=== PATIENT | male | born 1995 | race Caucasian/White ===

== ENCOUNTER 2022-11-23 16:25 | Emergency (ER) | payer OTHER, SELFPAY ==
[2022-11-23 16:31] VITALS: BP 144/80; PULSE 64; RESP 18; TEMP 36.6; O2SAT 100; BMI 25.5
--- NOTE | 2022-11-23 17:10 | CRLHL7_ITS ---
For Patients: As a result of the Century Cures Act, medical imaging exams and procedure reports are released immediately into your electronic medical record. You may view this report before your referring provider. If you have questions, please contact your health care provider. INDICATION: Fall. Dizziness. Headaches. TECHNIQUE: CT of the head without contrast. Coronal and sagittal reformats are included. COMPARISON: None. FINDINGS: No CT evidence of acute cortical infarct. No loss of leavitt white matter differentiation. No hyperdense vessels to suggest intracranial thrombus. No acute intracranial hemorrhage. No mass effect or midline shift. No hydrocephalus or extra-axial collections. White matter is within normal limits for age. No acute osseous abnormalities. Mastoid air cells and paranasal sinuses are clear. Normal soft tissues. IMPRESSION: IMPRESSION:1. No CT evidence of acute cortical infarct. No acute intracranial hemorrhage. No other acute intracranial findings. Please note that all CT scans at this facility use dose modulation, iterative reconstruction, and/or weight-based dosing when appropriate to reduce radiation dose to as low as reasonably achievable. Dictated by Jorge Luis Patel MD @ 11/23/2022 5:52:16 PM (Electronically Signed)
--- NOTE | 2022-11-23 17:11 | ED_ITS ---
HPI - Dizziness General Chief Complaint: Dizziness/Vertigo Stated Complaint: Fell earlier, dizzy Time Seen by Provider: 11/23/22 16:55 History of Present Illness HPI Narrative: This 27-year-old male comes in reporting a near syncopal episode that occurred a couple hours prior to arrival. He states that he was taking his garbage out and he began to feel lightheaded with some sense of movement of his surroundings. He was not able to correct these symptoms and did fall down without injury. He recovered rather quickly after this. He does report a headache currently and has been having some headaches over the past 3 weeks or so. He has had some other episodes of lightheadedness similar to this in the past. He is taking Lexapro and has been on a small dose of penicillin for the past 8 months because of recurrent cellulitis. He is not on any other medicines and does not report any street drug or alcohol use. He does have history of anxiety for which she is taking Lexapro. He does appear a bit anxious here and seems to be breathing a little faster than normal. Related Data Home Medications Medication Instructions Recorded Confirmed escitalopram oxalate 10 mg tablet 10 mg PO DAILY 11/23/22 11/23/22 (Lexapro) penicillin V potassium 250 mg 250 mg PO BID 11/23/22 11/23/22 tablet Allergies Allergy/AdvReac Type Severity Reaction Status Date / Time Sulfa (Sulfonamide Allergy Mild Rash Verified 11/23/22 16:40 Antibiotics) Review of Systems Status of ROS: Reports: 10 or more systems reviewed and unremarkable except as noted in History and below Narrative: Constitutional: No fevers, no weight gain or loss. Eyes: No discharge. No vision changes. HENT: No congestion, no sore throat, no ear pain. Cardiovascular: No chest pain, no palpitations. Respiratory: No shortness of breath, no wheezes, no cough. Gastrointestinal: No abdominal pain, no vomiting, no diarrhea. Genitourinary: No dysuria, no hematuria. Musculoskeletal: Normal range of motion. Skin: No rashes, no pruritis. Neurological: No weakness, sensory change, speech change. Lightheadedness episodes as described above. Endo/Heme/Allergies: No bruising or bleeding. No polydipsia. Pysch: no suicidality, no anxiety, no insomnia. All other systems reviewed and are negative. Exam Narrative: Exam Narrative: Constitutional: Well-developed, well-nourished, no acute distress. HEENT: Normocephalic, atraumatic. Neck: Normal range of motion. Nontender. Supple. Heart: Regular. No murmurs. Normal rate. Intact distal pulses. Lungs: Clear to auscultation. No chest discomfort. No wheezes, rhonchi, or rales. Abdomen: Normal bowel sounds. Nontender. No rebound tenderness. Genitalia: Deferred. Back: No midline tenderness. Normal range of motion. Extremities: Normal range of motion. No injury. Skin: Intact. No rash. Warm. No erythema or pallor. Neurologic: No altered sensation. No weakness. Alert and oriented. Psychiatric: No suicidality. No anxiety or depression. No insomnia. Nursing notes and vitals signs are reviewed. Const: Vital Signs, click to edit/add: Vital Signs - 24 hr 11/23/22 16:31 Temperature 98 F Pulse Rate [Pulse Oximeter] 64 Respiratory Rate 18 Blood Pressure [Ri t Upper Arm] 144/80 H Pulse Oximetry 100 Course Vital Signs Vital signs: Initial Vital Signs Temperature 98 F 11/23/22 16:31 Temperature Source Temporal Artery Scan 11/23/22 16:31 Pulse Rate 64 11/23/22 16:31 Pulse Rhythm 11/23/22 16:31 Pulse Strength 3+ Normal 11/23/22 16:31 Respiratory Rate 18 11/23/22 16:31 Blood Pressure 144/80 H 11/23/22 16:31 Blood Pressure Mean 101 11/23/22 16:31 Blood Pressure Position Sitting 11/23/22 16:31 Pulse Oximetry 100 11/23/22 16:31 Vital Signs Temperature 98 F 11/23/22 16:31 Pulse Rate 64 11/23/22 16:31 Respiratory Rate 18 11/23/22 16:31 Blood Pressure 144/80 H 11/23/22 16:31 Pulse Oximetry 100 11/23/22 16:31 Temperature 98 F 11/23/22 16:31 Pulse Rate 64 11/23/22 16:31 Respiratory Rate 18 11/23/22 16:31 Blood Pressure 144/80 H 11/23/22 16:31 Pulse Oximetry 100 11/23/22 16:31 MDM - Dizziness MDM Narrative Medical decision making narrative: This patient comes in for evaluation of a episode of lightheadedness with near syncope. He has had a few of these occasions in the past. He feels back to normal except for a headache. He is not on any new medications. 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 Currently he feels back to normal. He has been on Lexapro for many years at 10 mg daily. Since having his son in the past year he feels that he has much less anxiety and depression symptoms and wonders if that might be good to come off of this medicine. A CT scan of the head is acquired today and shows no acute findings. At the time of discharge the patient appears safe for outpatient management. The treatment plan is reviewed along with written and verbal return precautions. Reasons to return and the importance of close followup were also reviewed. Imaging Data CT scan - head: Radiologist's impression: No CT evidence of acute cortical infarct. No acute intracranial hemorrhage. No other acute intracranial findings. Discharge Plan Discharge Clinical Impression: Episodic lightheadedness Patient Disposition: Home, Self-Care Condition: Improved Additional Instructions: Continue current plans. Follow up with MD as needed. Return if symptoms are recurrent or worsening. Prescriptions: No Action escitalopram oxalate [Lexapro] 10 mg tablet 10 mg PO DAILY penicillin V potassium 250 mg tablet 250 mg PO BID Follow Up/Referrals: Provider,Not a Local [Primary Care Provider] - Stand Alone Forms: [employer] Info Instructions
[2022-11-23 18:05] VITALS: BP 124/78; PULSE 63; RESP 18; TEMP 36.6; O2SAT 100
[2022-11-23 18:08] VITALS: BP 124/78; PULSE 63; RESP 18; TEMP 36.6
== END 2022-11-23 18:08 | disposition home or self-care (01) ==
PROVIDERS: Emergency Provider Emergency Medicine Emergency Medical Services
DX: R42 Dizziness and giddiness (principal)
CPT/HCPCS: 70450; 99283; 99284

== ENCOUNTER 2023-07-05 15:37 | Emergency (ER) | payer OTHER, SELFPAY ==
[2023-07-05 15:48] VITALS: BP 147/91; PULSE 63; RESP 18; TEMP 36.6; O2SAT 98; BMI 25.3
--- NOTE | 2023-07-05 16:10 | ED_ITS ---
HPI - General Adult General Time Seen by Provider: 16:10 Date Seen: 07/05/23 Chief complaint: Chest Pain Stated complaint: Chest pain, heart fluttering, new medication Time Seen by Provider: 07/05/23 15:58 Source: patient Mode of arrival: ambulatory Limitations: no limitations History of Present Illness HPI narrative: Patient is a pleasant 28 year white male who works in [employer], lives in [place]. He has been working with [facility] regarding migraines and vestibular dysfunction. Recently started on mirtazapine, and since then for last few days he has had palpitations feels like his heart is beating hard. She had no real chest pain no marked recurrent lightheadedness or dizziness, but does feel the intermittent palpitations. He was told by his [facility] clinicians that he should stop the medications talk to his local doctor. Local doctor asked him to come to the emergency department. Patient has had blood work done last 3 weeks that was all within normal limits, he denies fever, chills, COVID symptoms. He has had no history of heart disease, no immediate family history of heart disease other his grandmother had a congenital issue Related Data Home Medications Medication Instructions Recorded Confirmed escitalopram oxalate 10 mg tablet 10 mg PO DAILY 11/23/22 11/23/22 (Lexapro) penicillin V potassium 250 mg 250 mg PO BID 11/23/22 11/23/22 tablet mirtazapine 15 mg tablet 15 mg PO QPM 07/05/23 07/05/23 verapamil 120 mg tablet,extended 120 mg PO QPM migraine 07/05/23 07/05/23 release Allergies Allergy/AdvReac Type Severity Reaction Status Date / Time Sulfa (Sulfonamide Allergy Mild Rash Verified 11/23/22 16:40 Antibiotics) Review of Systems Status of ROS: Reports: 6 or more systems reviewed and unremarkable except as noted in History and below PFSH PFS Social History Smoking Status: Never smoker How often do you have a drink containing alcohol: never AUDIT-C Alcohol total score: 0 Non-prescribed substance use: denies use Exam Narrative: Exam Narrative: Objective: Vital signs show slightly elevated systolic pressure, O2 sat 98% on room air Alert orient x3 no distress no cyanosis HEENT unremarkable Neck is supple Chest clear Heart rhythm regular heart murmur Extremities he is moving all 4s good peripheral perfusion noted Const: Vital Signs, click to edit/add: Vital Signs - 24 hr 07/05/23 15:48 07/05/23 16:32 07/05/23 16:33 Temperature 97.9 F Pulse Rate 53 L 51 L Pulse Rate [Right Pulse Oximeter] 63 Respiratory Rate 18 Blood Pressure 121/72 Blood Pressure [Ri ght Upper Arm] 147/91 H Pulse Oximetry 98 98 98 Oxygen Delivery Me thod Room Air 07/05/23 17:00 07/05/23 17:02 Temperature Pulse Rate 48 L 48 L Pulse Rate [Right Pulse Oximeter] Respiratory Rate Blood Pressure 134/77 Blood Pressure [Ri ght Upper Arm] Pulse Oximetry 97 98 Oxygen Delivery Me thod Course Vital Signs Vital signs: Initial Vital Signs Temperature 97.9 F 07/05/23 15:48 Temperature Source Temporal Artery Scan 07/05/23 15:48 Pulse Rate 63 07/05/23 15:48 Respiratory Rate 18 07/05/23 15:48 Blood Pressure 147/91 H 07/05/23 15:48 Blood Pressure Mean 109 H 07/05/23 15:48 Blood Pressure Position Sitting 07/05/23 15:48 Pulse Oximetry 98 07/05/23 15:48 Oxygen Delivery Method Room Air 07/05/23 15:48 Vital Signs Temperature 97.9 F 07/05/23 15:48 Pulse Rate 63 07/05/23 15:48 Respiratory Rate 18 07/05/23 15:48 Blood Pressure 147/91 H 07/05/23 15:48 Pulse Oximetry 98 07/05/23 15:48 Oxygen Delivery Method Room Air 07/05/23 15:48 Temperature 97.9 F 07/05/23 15:48 Pulse Rate 48 L 07/05/23 17:02 Respiratory Rate 18 07/05/23 15:48 Blood Pressure 134/77 07/05/23 17:02 Pulse Oximetry 98 07/05/23 17:02 Oxygen Delivery Method Room Air 07/05/23 15:48 Medical Decision Making MDM Narrative Medical decision making narrative: [age] year white male currently undergoing treatment for migraine and vestibular issues, with new medicine started an associated symptoms. He has noticed palpitations since starting the mirtazapine, he has been told to stop this. This is by his [facility] team. At this point he appears to be in sinus rhythm. For completeness I think it be reasonable to repeat a blood study in the form of heme 4 basic 7 D-dimer and a point of care troponin. I think also he would benefit from a 48 hour Holter monitor. This will be placed. He can follow up with his primary doctor with the results. Return to ED sooner problems or concerns. At this point is asymptomatic. Addendum 5:20 p.m. patient's EKG shows sinus bradycardia with a somewhat right ventricular conduction delay likely can consistent with a healthy heart for a young person. He also has laboratory studies that showed normal ER profile negative CRP, negative D-dimer, negative troponin, normal electrolytes. I think a Holter be appropriate as well as stopping the medication then seeing on things progress he was comfortable distal follow up with his primary doctor as directed thanks Lab Data Labs: Lab Results 07/05/23 Range/Units 16:21 WBC 7.05 (4.50-11.00) K/uL RBC 5.13 (4.30-5.90) m/uL Hgb 15.5 (13.5-17.5) gm/dL Hct 43.9 (37.0-53.0) % MCV 86 (80-100) fL MCH 30 (26-34) pg MCHC 35 (32-36) gm/dL RDW Coeff of Kelsi 12.0 (11.5-15.5) % Plt Count 245 (140-440) K/uL Neut % (Auto) 49.4 (42.0-72.0) % Lymph % (Auto) 42.1 (20-44) % [place] % (Auto) 6.4 (0.0-11.0) % Eos % (Auto) 1.4 (0.0-7.0) % Baso % (Auto) 0.4 (0.0-3.0) % Neut # (Auto) 3.48 (1.7-7.0) K/uL Lymph # (Auto) 2.97 H (0.90-2.90) K/uL Kenton # (Auto) 0.50 (0.00-0.90) K/UL Eos # (Auto) 0.10 (0.00-0.50) K/uL Baso # (Auto) 0.03 (0.00-0.30) K/uL Abs Immat Gran (auto) 0.02 (0.00-0.30) K/uL Imm/Tot Granulo (auto) 0.3 % D-Dimer Quant (PE/DVT) < 0.27 (0.00-0.50) ug/ml Sodium 140 (135-149) mmol/L Potassium 3.9 (3.6-5.1) mmol/L Chloride 105 (96-114) mmol/L Carbon Dioxide 24 (20-32) mmol/L Anion Gap 11 (7-15) mEq/L BUN 16 (5-24) mg/dL Creatinine 0.9 (0.5-1.5) mg/dL Estimated Creat Clear 120.02 Estimated GFR 118 ml/min Glucose 77 (60-115) mg/dL Calcium 8.9 (8.4-10.6) mg/dL C-Reactive Protein < 0.5 L (0.5-1.0) mg/dL POC Troponin I 0.00 L (0.01-0.04) ng/ml Discharge Plan Discharge Clinical Impression: History of migraine, Heart palpitations Patient Disposition: Home, Self-Care Condition: Stable Additional Instructions: Usual activity, Holter monitor, regular diet, recheck with your regular doctor at the completion of the Holter. Return to the ED as needed. Stop the medicine as advised by her [facility] physicians Activity Level: No Restrictions Discharge Diet: Regular Prescriptions: No Action verapamil 120 mg tablet extended release 120 mg PO QPM mirtazapine 15 mg tablet 15 mg PO QPM escitalopram oxalate [Lexapro] 10 mg tablet 10 mg PO DAILY penicillin V potassium 250 mg tablet 250 mg PO BID Follow Up/Referrals: Provider,Not a Local [Primary Care Provider] - Stand Alone Forms: [email or web address] Instructions
[2023-07-05 16:32] VITALS: BP 121/72; PULSE 53; O2SAT 98
[2023-07-05 16:33] VITALS: PULSE 51; O2SAT 98
[2023-07-05 16:40] LABS: Basophils Absolute Auto 0.03 K/uL (0.00-0.30); Basophils Percent Auto 0.4 % (0.0-3.0); Eosinophils Percent Auto 1.4 % (0.0-7.0); Hematocrit 43.9 % (37.0-53.0); Hemoglobin* 15.5 gm/dL (13.5-17.5); Immature Granulocytes Abs Auto 0.02 K/uL (0.00-0.30); Immature Granulocytes Pct Auto 0.3 %; Lymphocytes Absolute Auto 2.97 K/uL (0.90-2.90); Lymphocytes Percent Auto 42.1 % (20-44); Mean Corpuscular HGB Conc 35 gm/dL (32-36); Mean Corpuscular Hemoglobin 30 pg (26-34); Mean Corpuscular Volume 86 fL (80-100); Monocytes Percent Auto 6.4 % (0.0-11.0); Neutrophils Absolute Auto 3.48 K/uL (1.7-7.0); Neutrophils Percent Auto 49.4 % (42.0-72.0); Platelet Count* 245 K/uL (140-440); Red Blood Count 5.13 m/uL (4.30-5.90); White Blood Count* 7.05 K/uL (4.50-11.00)
[2023-07-05 16:51] LABS: Slide Review Reflex No
[2023-07-05 17:00] VITALS: PULSE 48; O2SAT 97
[2023-07-05 17:02] VITALS: BP 134/77; PULSE 48; O2SAT 98
[2023-07-05 17:06] LABS: Chloride* 105 mmol/L (96-114); Potassium* 3.9 mmol/L (3.6-5.1); Sodium* 140 mmol/L (135-149)
[2023-07-05 17:08] LABS: Creatinine* 0.9 mg/dL (0.5-1.5); Est. Creatinine Clearance* 120.02; Estimated Glomerular Filt Rate 118 ml/min
[2023-07-05 17:09] LABS: Anion Gap 11 mEq/L (7-15); Blood Urea Nitrogen* 16 mg/dL (5-24); Carbon Dioxide* 24 mmol/L (20-32); Glucose* 77 mg/dL (60-115)
[2023-07-05 17:10] LABS: Calcium* 8.9 mg/dL (8.4-10.6)
[2023-07-05 17:15] LABS: C Reactive Protein* < 0.5 mg/dL (0.5-1.0)
[2023-07-05 17:19] LABS: D Dimer Quantitative* < 0.27 ug/ml (0.00-0.50)
== END 2023-07-05 17:41 | disposition home or self-care (01) ==
PROVIDERS: Emergency Provider Family Medicine
DX: R00.2 Palpitations (principal)
CPT/HCPCS: 36415; 80048; 84484; 85025; 85379; 86140; 93005; 93225; 93226; 99284